=== PATIENT | male | born 1965 | race Caucasian/White ===

== ENCOUNTER 2017-09-27 22:44 | Emergency (ER) | payer OTHER ==
[2017-09-27 22:54] VITALS: BP 183/101; PULSE 139; RESP 18; TEMP 98.3; O2SAT 95
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
--- NOTE | 2017-09-28 12:17 | EKG ---
Date Performed: 09/27/2017 Time Performed: 23:17:38 PTAGE: 52 years EKG: Sinus tachycardia Poor R-wave progression which may be of normal variant Small inferior Q w aves of undetermined significance Compared to previous tracing, the small Q waves are new. ABNORMAL E CG PREVIOUS TRACING : 03/14/2017 19.17 DOCTOR: Jason Diaz Interpretating Date/Time 09/28/2017 12:16:50
== END 2017-09-28 02:07 | disposition home or self-care (01) ==
LOC: NEPE 22:44
DX: S09.90XA Unspecified injury of head, initial encounter (principal); M54.2 Cervicalgia; I10 Essential (primary) hypertension; R94.31 Abnormal electrocardiogram [ECG] [EKG]; Y33.XXXA Other specified events, undetermined intent, initial encounter; Z72.0 Tobacco use
CPT/HCPCS: 70450; 72125; 93005; 99285

== ENCOUNTER 2018-02-07 22:31 | Emergency (ER) | payer OTHER ==
[~2018-02-07] VITALS: Ht 170.2 cm; Wt 85.0 kg
[2018-02-07 22:42] VITALS: BP 167/104; PULSE 124; RESP 16; TEMP 99; O2SAT 97
[2018-02-08] MEDS ORDERED: BACT800T5 PO (01:09)
[2018-02-08] MEDS ORDERED: SULFAMETHOXAZOLE-TRIMETHOPRIM DS 800-160 MG TAB PO ONE (01:15)
--- NOTE | 2018-02-08 01:15 | PD ---
HPI Chief Complaint: Skin Problem Time Seen by Provider: 01:00 Travel History International Travel<30 days: No Contact w/Intl Traveler<30days: No Traveled to known affect area: No History of Present Illness HPI 52-year-old white male presents to emergency Department with complaints of a abscess to his right neck over the past week. He states that he is unsure whether he may been bitten by something. He's been picking and squeezing the area and had gotten some pus out. He states that the area has once again became tender and red. He is requesting antibiotics. Symptoms are mild to moderate. No exacerbating or alleviating activity. PFSH Past Medical History Medical History: Denies Significant Hx Diminished Hearing: No Hypertension: Yes Immunizations Current: Yes Tetanus Vaccination: < 5 Years Influenza Vaccination: Yes Past Surgical History Surgical History: No Previous Surgery Social History Alcohol Use: Yes (rarely) Tobacco Use: No Substance Use: Yes (marajuiana) Allergies-Medications (Allergen,Severity, Reaction): Coded Allergies: No Known Allergies (Unverified Adverse Reaction, Unknown, 02/07/18) Reported Meds & Prescriptions Reported Meds & Active Scripts Active Bactrim DS (Sulfamethoxazole-Trimethoprim) 800-160 Mg Tab 1 Tab PO BID Review of Systems Except as stated in HPI: all other systems reviewed are Neg Physical Exam Narrative GENERAL: This is a well-nourished, well-developed patient, in no apparent distress. SKIN: Patient has an open draining abscess to the right side of the neck. This measures 1.5 x 1.5 cm. No fluctuance or pointing. Positive induration. HEAD: Atraumatic. Normocephalic. EYES: PERRL, EOMI, no discharge or injection. No scleral icterus. EARS: Clear NOSE: Nasal turbinates appear normal. THROAT: Mucosa pink and moist. Airway patent. NECK: Trachea midline. supple, moves head freely. LUNGS: Clear to auscultation. CV: Regular in rhythm. ABDOMEN: Soft nontender. EXT: No clubbing cyanosis or edema. Data Data Last Documented VS Vital Signs Date Time Temp Pulse Resp B/P (MAP) Pulse Ox O2 Delivery O2 Flow Rate FiO2 02/07/18 22:42 99.0 124 16 167/104 (125) 97 Room Air Orders Orders Ed Discharge Order (02/08/18 01:08) Sulfamet-Trimeth Ds 800-160 Mg (Bactrim (02/08/18 01:15) MDM Medical Decision Making Medical Screen Exam Complete: Yes Emergency Medical Condition: Yes Medical Record Reviewed: Yes Differential Diagnosis MDM: High Differential diagnoses: Abscess, folliculitis, cellulitis, lymphangitis, abrasion, contact dermatitis Narrative Course Patient is given Bactrim DS by mouth here in the ER. This is right neck abscess Diagnosis Primary Impression: right neck abscess Patient Instructions: General Instructions Additional Instructions: Rest. Elevation. keep clean and dry. Warm compresses Daily wound care with soap, water and Neosporin. Three Advil every 6 hours. Bactrim DS. Follow-up with a primary care doctor in one week. Return to the ER for any problems. Med/Other Pt SpecificInfo: Prescription(s) given, Wound Care Scripts Sulfamethoxazole-Trimethoprim (Bactrim DS) 800-160 Mg Tab 1 TAB PO BID for Infection, #20 TAB 0 Refills Prov: Omaira Yanes MD 02/08/18 Disposition: 01 DISCHARGE HOME Condition: Stable Mars Hernandez Feb 08, 2018 01:15
== END 2018-02-08 01:44 | disposition home or self-care (01) ==
LOC: NEPD 22:31
DX: L02.11 Cutaneous abscess of neck (principal); I10 Essential (primary) hypertension
CPT/HCPCS: 99283

== ENCOUNTER 2018-03-07 21:30 | Emergency (ER) | payer OTHER ==
[~2018-03-07] VITALS: Ht 170.2 cm; Wt 80.0 kg
[~2018-03-07 21:30] MED LIST: BACT800T5 PO
[2018-03-07 21:36] VITALS: BP 171/106; PULSE 124; RESP 16; TEMP 98.7; O2SAT 99
[2018-03-08] MEDS ORDERED: CLIN150C14 PO (02:29)
[2018-03-08] MEDS ORDERED: BACT800T5 PO (02:29)
--- NOTE | 2018-03-08 02:29 | PD ---
HPI Chief Complaint: Skin Problem Time Seen by Provider: 02:19 Travel History International Travel<30 days: No Contact w/Intl Traveler<30days: No Traveled to known affect area: No History of Present Illness HPI 52-year-old male complains of swelling left eye. Patient states that has a small pimple on the lateral aspect the left eye yesterday. Patient states he has increasing redness swelling on the left eye since then. Patient denies any fever chills. Patient denies any visual change. Patient denies any injury to her left eye. Patient states that he is up-to-date with TD booster. PFSH Past Medical History Diminished Hearing: No Hypertension: Yes Immunizations Current: Yes Past Surgical History Surgical History: No Previous Surgery Social History Alcohol Use: Yes (rarely) Tobacco Use: No Substance Use: Yes (marajuiana) Allergies-Medications (Allergen,Severity, Reaction): Coded Allergies: No Known Allergies (Unverified Adverse Reaction, Unknown, 03/07/18) Reported Meds & Prescriptions Reported Meds & Active Scripts Active Bactrim DS (Sulfamethoxazole-Trimethoprim) 800-160 Mg Tab 1 Tab PO BID Review of Systems General / Constitutional: No: Fever Eyes: No: Visual changes HENT: No: Headaches Cardiovascular: No: Chest Pain or Discomfort Respiratory: No: Shortness of Breath Gastrointestinal: No: Abdominal Pain Genitourinary: No: Dysuria Musculoskeletal: No: Pain Skin: No Rash Neurologic: No: Weakness Psychiatric: No: Depression Endocrine: No: Polydipsia Hematologic/Lymphatic: No: Easy Bruising Physical Exam Narrative GENERAL: Well-nourished, well-developed patient. SKIN: Focused skin assessment warm/dry. HEAD: Normocephalic. EYES: No scleral icterus. No injection or drainage. NECK: Supple, trachea midline. No JVD or lymphadenopathy. CARDIOVASCULAR: Regular rate and rhythm without murmurs, gallops, or rubs. RESPIRATORY: Breath sounds equal bilaterally. No accessory muscle use. GASTROINTESTINAL: Abdomen soft, non-tender, nondistended. MUSCULOSKELETAL: No cyanosis, or edema. BACK: Nontender without obvious deformity. No CVA tenderness. Patient has an area of redness swelling with mild tenderness periorbital area left eye especially lateral aspect the left eye. No induration and no discharge noted. Extraocular muscle intact. Data Data Last Documented VS Vital Signs Date Time Temp Pulse Resp B/P (MAP) Pulse Ox O2 Delivery O2 Flow Rate FiO2 03/07/18 21:36 98.7 124 16 171/106 (127) 99 Orders Orders Vancomycin Inj (Vancomycin Inj) (03/08/18 02:30) [facility] Medical Decision Making Medical Screen Exam Complete: Yes Emergency Medical Condition: Yes Differential Diagnosis Differential diagnosis includes periorbital cellulitis, abscess. Narrative Course 52-year-old male with redness swelling around the left eye. The symptoms started yesterday. Examination consistent with preseptal cellulitis. Vancomycin 1 g IV given. Diagnosis Primary Impression: Periorbital cellulitis Qualified Codes: L03.213 - Periorbital cellulitis Patient Instructions: General Instructions Additional Instructions: Clindamycin and Bactrim DS as directed. Tomorrow for recheck. Advised warm moist compress. Med/Other Pt SpecificInfo: Prescription(s) given Scripts Sulfamethoxazole-Trimethoprim (Bactrim DS) 800-160 Mg Tab 1 TAB PO BID for Infection, #20 TAB 0 Refills Prov: Emanuel Dan MD 03/08/18 Clindamycin (Clindamycin) 150 Mg Cap 300 MG PO QID for Infection, #80 CAP 0 Refills Prov: Emanuel Dan MD 03/08/18 Disposition: 01 DISCHARGE HOME Condition: Stable Emanuel Dan MD Mar 08, 2018 02:29
[2018-03-08] MEDS ORDERED: VANCOMYCIN INJ 1,000 MG in SODIUM CHLOR 0.9% 250 ML INJ 250 ML IV ONE (02:30)
== END 2018-03-08 03:38 | disposition home or self-care (01) ==
LOC: NEPC 21:30
DX: L03.213 Periorbital cellulitis (principal); I10 Essential (primary) hypertension
CPT/HCPCS: 96374; 99284; J3370; J7050